=== PATIENT | male | born 1985 | race Caucasian/White ===

== ENCOUNTER 2024-03-02 08:55 | Emergency (ER) | payer OTHER ==
[~2024-03-02] VITALS: Ht 172.7 cm; Wt 95.7 kg
[2024-03-02 09:03] VITALS: BP 140/90; PULSE 72; RESP 22; TEMP 98.4; O2SAT 98
[2024-03-02] MEDS ORDERED: NAPR-337 PO (09:22)
[2024-03-02] MEDS: ACETAMINOPHEN 325 MG TAB PO ONE (09:23)
[2024-03-02 09:45] VITALS: BP 140/90; PULSE 72; RESP 22; TEMP 98.4; O2SAT 98
== END 2024-03-02 09:45 | disposition home or self-care (01) ==
LOC: MED 08:55
DX: S39.012A Strain of muscle, fascia and tendon of lower back, initial encounter (principal); F17.200 Nicotine dependence, unspecified, uncomplicated; Z71.6 Tobacco abuse counseling; Z98.890 Other specified postprocedural states; V89.2XXA Person injured in unspecified motor-vehicle accident, traffic, initial encounter; Y93.89 Activity, other specified; Y92.89 Other specified places as the place of occurrence of the external cause; Y99.8 Other external cause status
CPT/HCPCS: 99282